=== PATIENT | female | born 1990 ===

== ENCOUNTER 2021-07-20 14:37 | Outpatient (CLI) | payer OTHER | END 2021-07-20 16:44 | disposition home or self-care (01) | LOC: PRENATAL 14:37 | PROVIDERS: ATTEND Obstetrics & Gynecology Maternal & Fetal Medicine | DX: O35.0XX1 Maternal care for (suspected) central nervous system malformation in fetus, fetus 1 (principal); O35.3XX1 Maternal care for (suspected) damage to fetus from viral disease in mother, fetus 1; O98.512 Other viral diseases complicating pregnancy, second trimester; Z36.89 Encounter for other specified antenatal screening; Z3A.23 23 weeks gestation of pregnancy ==

== ENCOUNTER 2021-09-12 10:30 | Outpatient (CLI) | payer OTHER ==
[2021-09-12] MEDS ORDERED: FOLIC ACID0.8 MG PO (11:12)
[2021-09-12] MEDS ORDERED: PRENATAL TABLE1 EAC1 PO (11:12)
[2021-09-12] MEDS ORDERED: PROGESTERONE100 M1 PO (11:13)
[2021-09-12] MEDS ORDERED: [UNRECOGNIZED DRUG - OTHER] PO (11:14)
== END 2021-09-12 20:54 | disposition home or self-care (01) ==
LOC: OBS/DEL 10:30
PROVIDERS: ATTEND Obstetrics & Gynecology
DX: O60.03 Preterm labor without delivery, third trimester (principal); Z3A.31 31 weeks gestation of pregnancy; Z20.822 Contact with and (suspected) exposure to COVID-19

== ENCOUNTER 2021-10-02 12:53 | Outpatient (CLI) | payer OTHER ==
[~2021-10-02 12:53] MED LIST: FOLIC ACID0.8 MG PO; PRENATAL TABLE1 EAC1 PO; PROGESTERONE100 M1 PO; [UNRECOGNIZED DRUG - OTHER] PO
== END 2021-10-02 14:25 | disposition home or self-care (01) ==
LOC: PRENATAL 12:53
PROVIDERS: ATTEND Obstetrics & Gynecology Maternal & Fetal Medicine
DX: O26.843 Uterine size-date discrepancy, third trimester (principal); O36.8131 Decreased fetal movements, third trimester, fetus 1; O35.0XX1 Maternal care for (suspected) central nervous system malformation in fetus, fetus 1; O60.03 Preterm labor without delivery, third trimester; Z36.89 Encounter for other specified antenatal screening; Z3A.34 34 weeks gestation of pregnancy

== ENCOUNTER 2021-11-06 06:43 | Inpatient (IN) | payer OTHER | END 2021-11-08 12:59 | disposition home or self-care (01) | DRG 807 | LOC: LDR 06:43 → OB/GYN 18:37 | PROVIDERS: ADMIT Obstetrics & Gynecology; ATTEND Obstetrics & Gynecology | PROC: 10E0XZZ Delivery of Products of Conception, External Approach (ICD-10-PCS; principal; 2021-11-06) | PROC: 4A1HXCZ Monitoring of Products of Conception, Cardiac Rate, External Approach (ICD-10-PCS; 2021-11-06) | DX: O80 Encounter for full-term uncomplicated delivery (principal); Z37.0 Single live birth; Z3A.39 39 weeks gestation of pregnancy; Z20.822 Contact with and (suspected) exposure to COVID-19 ==